=== PATIENT | female | born 1970 | race Caucasian/White ===

== ENCOUNTER → 2016-08-07 | Outpatient (CLI) | payer OTHER ==
--- NOTE | 2016-08-07 15:12 | KCIC ---
PROCEDURE [facility]. HISTORY Asthma with acute exacerbation. Cough for 2 weeks which is worsening. COMPARISON None available. FINDINGS No acute lung infiltrate or pleural effusion or pulmonary edema or lung mass or pneumothorax is seen. The heart size, pulmonary vasculature, mediastinum and both hina are unremarkable. The osseous structures appear intact. IMPRESSION No acute radiographic abnormality is seen. Electronically signed by: Demar Vuong MD (Aug 07, 2016 15:11:33)
== END | disposition home or self-care (01) ==
LOC: KCIC 11:45
PROVIDERS: ATTEND Family Medicine
DX: J45.901 Unspecified asthma with (acute) exacerbation (principal)
CPT/HCPCS: 71020